=== PATIENT | male | born 1970 | race Caucasian/White ===

== ENCOUNTER → 2019-03-16 08:21 | Outpatient (CLI) | payer MEDICAID, SELFPAY ==
--- NOTE | 2019-03-16 08:25 | CA_ITS ---
APPROVED REPORT EXAM: Comprehensive 2D, Doppler, and color-flow Echocardiogram Landscaper Helper: Prema Powers RT(R) Ht: 6 ft 1 in Wt: 211lbs BSA: 2.20 BP: 114/71 mmHg Indications: COPD, Shortness of Breath, Palpitations, CAD, Hyperlipidemia, Hypertension/HDD 2D Dimensions LVOT 2.12 cm (M/F) 1.5-2.5 M-Mode Dimensions RVDd 2.23 cm (0.9-2.6) LVDd 5.35 cm (3.5-5.7) LVDs 3.84 cm (3.5-5.7) IVSd 0.80 cm (0.6-1.1) PWd 0.94 cm (0.6-1.1) EF (Teich) 54.10% FS 28.20% EDV (Teich) 138.30 mL ESV (Teich) 63.50 mL LV Diastology E/A Ratio 1.36 Mitral Valve MV A Velocity 50.00 (40-130 cm/s) Left Ventricle Left atrium is mildly enlarged, left ventricle is normal size, mild concentric left ventricular hypertrophy, visually estimated ejection fraction 55% with no regional wall motion abnormality, grade 1 diastolic dysfunction seen without tissue Doppler evidence of raise left atrial pressure. Right Ventricle Right atrium and right ventricular normal size and contractility. Aortic Valve Aortic valve is minimally thickened and fibrosed, there is no aortic stenosis aortic insufficiency. Mitral Valve Mitral valve is grossly normal, there is mild mitral regurgitation. Tricuspid Valve Tricuspid valve is grossly normal, there is mild tricuspid regurgitation. Pulmonic Valve Pulmonic valve is poorly visualized. Great Vessels Aortic root is normal size. Pericardium No significant pericardial effusion noted. Conclusion 1. Mildly low left atrium, normal left ventricular size, mild concentric left ventricular hypertrophy, visually estimated ejection fraction 55% with no regional wall motion abnormality, grade 1 diastolic dysfunction seen without tissue Doppler evidence of raise left atrial pressure. 2. Mild mitral and tricuspid regurgitation. 3. No significant pericardial effusion noted. Electronically signed by : Babar Dominguez, 03/16/2019 20:16:19
== END ==
PROVIDERS: PCP Family Medicine; Visit Provider Urology
DX: I25.10 Atherosclerotic heart disease of native coronary artery without angina pectoris (principal); R06.09 Other forms of dyspnea; E78.2 Mixed hyperlipidemia; I11.9 Hypertensive heart disease without heart failure; F17.200 Nicotine dependence, unspecified, uncomplicated
CPT/HCPCS: 93306

== ENCOUNTER → 2019-06-29 12:13 | Outpatient (CLI) | payer MEDICAID, SELFPAY ==
[2019-06-29 12:41] LABS: Basophils # 0.1 K/mm3 (0-0.2); Basophils % 1.4 % (0.1-2.0); Eosinophils # 0.2 K/mm3 (0.0-0.4); Eosinophils % 2.8 % (0.1-12.0); Hematocrit 47.9 % (42.0-52.0); Hemoglobin 16.9 g/dL (14.1-18.0); Lymphocytes # 1.9 K/mm3 (0.7-4.5); Lymphocytes % 30.5 % (10-50); Mean Corpuscular HGB Conc 35.4 g/dL (31.8-35.4); Mean Corpuscular Hemoglobin 30.1 pg (27.0-31.2); Mean Corpuscular Volume 85.1 fl (80-94); Mean Platelet Volume 8.1 fl (7.4-10.4); Monocytes # 0.5 K/mm3 (0.1-1.0); Monocytes % 7.1 % (1.7-9.3); Neutrophils # 3.7 K/mm3 (1.8-7.8); Neutrophils % 58.2 % (37.0-80.0); Platelet Count 200 K/mm3 (142-424); Red Blood Count 5.62 M/mm3 (4.60-6.20); Red Cell Distribution Width 13.2 % (11.5-17.5); White Blood Count 6.3 K/mm3 (4.8-10.8)
[2019-06-29 14:14] LABS: Anion Gap 12.5 mEq/L (5-15); Blood Urea Nitrogen 14 mg/dl (9-20); Carbon Dioxide 30 mmol/L (22.0-30.0); Chloride 101 mmol/L (98-107); Estimated Glomerular Filt Rate 90 ml/min (>60); GFR (African American) 109 ML/MIN (>60); Glucose 100 mg/dl (74-100); Potassium 4.5 mmoL/L (3.5-5.1); Sodium 139 mmol/L (136-145)
== END ==
PROVIDERS: PCP Family Medicine; Visit Provider Urology
DX: R42 Dizziness and giddiness (principal); I25.10 Atherosclerotic heart disease of native coronary artery without angina pectoris; I11.9 Hypertensive heart disease without heart failure; E78.5 Hyperlipidemia, unspecified; J44.9 Chronic obstructive pulmonary disease, unspecified; F17.200 Nicotine dependence, unspecified, uncomplicated
CPT/HCPCS: 36415; 80048; 85025; 93270

== ENCOUNTER → 2020-07-27 09:44 | Outpatient (CLI) | payer MEDICAID, SELFPAY ==
[2020-07-27 10:16] LABS: Alanine Aminotransferase 39 U/L (12-78); Albumin Level 4.6 g/dl (3.5-5.0); Alkaline Phosphatase 90 U/L (38-126); Aspartate Amino Transferase 36 U/L (17-59); Bilirubin,Direct 0.1 mg/dl (0.0-0.4); Bilirubin,Indirect 0.3 mg/dL (0.0-0.9); Bilirubin,Total 0.4 mg/dl (0.2-1.3); Bilirubin,Unconjugated 0.4 mg/dL (0.0-1.1); Chol/HDL Ratio 3.7 (1-3.5); Cholesterol 134 mg/dl (140-200); HDL Cholesterol 36 mg/dl (40-60); Total Protein,Serum 7.4 g/dl (6.3-8.2); Triglycerides 295 mg/dl (30-150); VLDL Cholesterol 59 mg/dL (0-40)
[2020-07-27 10:28] LABS: Direct LDL Cholesterol < 30.00 mg/dL (100-129)
== END ==
PROVIDERS: Visit Provider Nurse Practitioner Family
DX: I25.10 Atherosclerotic heart disease of native coronary artery without angina pectoris (principal); E78.2 Mixed hyperlipidemia
CPT/HCPCS: 36415; 80061; 80076

== ENCOUNTER → 2021-11-06 10:00 | Outpatient (CLI) | payer MEDICAID, SELFPAY ==
[2021-11-06 10:52] LABS: Basophils # 0.1 K/mm3 (0-0.2); Basophils % 1.9 % (0.1-2.0); Eosinophils # 0.1 K/mm3 (0.0-0.4); Eosinophils % 2.3 % (0.1-12.0); Hematocrit 43.8 % (42.0-52.0); Hemoglobin 14.6 g/dL (14.1-18.0); Lymphocytes # 1.6 K/mm3 (0.7-4.5); Lymphocytes % 27.8 % (10-50); Mean Corpuscular HGB Conc 33.3 g/dL (31.8-35.4); Mean Corpuscular Hemoglobin 27.5 pg (27.0-31.2); Mean Corpuscular Volume 82.6 fl (80-94); Mean Platelet Volume 8.5 fl (7.4-10.4); Monocytes # 0.4 K/mm3 (0.1-1.0); Neutrophils # 3.4 K/mm3 (1.8-7.8); Platelet Count 202 K/mm3 (142-424); Red Blood Count 5.31 M/mm3 (4.60-6.20); Red Cell Distribution Width 14.4 % (11.5-17.5); White Blood Count 5.6 K/mm3 (4.8-10.8)
[2021-11-06 11:12] LABS: Alanine Aminotransferase 26 U/L (12-78); Albumin Level 4.1 g/dl (3.5-5.0); Alkaline Phosphatase 100 U/L (38-126); Anion Gap 8.6 mEq/L (5-15); Aspartate Amino Transferase 27 U/L (17-59); Bilirubin,Direct 0.2 mg/dl (0.0-0.4); Bilirubin,Indirect 0.1 mg/dL (0.0-0.9); Bilirubin,Total 0.3 mg/dl (0.2-1.3); Bilirubin,Unconjugated 0.1 mg/dL (0.0-1.1); Blood Urea Nitrogen 8 mg/dl (9-20); Calcium 9.3 mg/dl (8.4-10.2); Carbon Dioxide 31 mmol/L (22.0-30.0); Chloride 103 mmol/L (98-107); Chol/HDL Ratio 3.4 (1-3.5); Cholesterol 117 mg/dl (140-200); Estimated Glomerular Filt Rate 102 ml/min (>60); GFR (African American) 123 ML/MIN (>60); Glucose 107 mg/dl (74-100); HDL Cholesterol 34 mg/dl (40-60); Potassium 3.6 mmoL/L (3.5-5.1); Sodium 139 mmol/L (136-145); Total Protein,Serum 6.6 g/dl (6.3-8.2); Triglycerides 224 mg/dl (30-150); VLDL Cholesterol 45 mg/dL (0-40)
[2021-11-06 11:25] LABS: Direct LDL Cholesterol < 30.00 mg/dL (100-129)
[2021-11-06 11:42] LABS: Thyroid Stimulating Hormone 1.02 uIU/mL (0.465-4.68)
== END ==
PROVIDERS: PCP Family Medicine; Visit Provider Nurse Practitioner
DX: R06.00 Dyspnea, unspecified (principal); I25.10 Atherosclerotic heart disease of native coronary artery without angina pectoris; I11.9 Hypertensive heart disease without heart failure; E11.9 Type 2 diabetes mellitus without complications; E78.2 Mixed hyperlipidemia; J43.9 Emphysema, unspecified; I63.9 Cerebral infarction, unspecified; F17.200 Nicotine dependence, unspecified, uncomplicated
CPT/HCPCS: 36415; 80048; 80061; 80076; 84439; 84443; 85025

== ENCOUNTER 2024-05-23 10:09 | Emergency (ER) | payer MEDICAID, SELFPAY ==
[2024-05-23] VITALS (12 sets, daily range): BP systolic 96–136; BP diastolic 68–84; PULSE 60–68; RESP 10–21; TEMP 36.7; O2SAT 96–98; BMI 25.7
--- NOTE | 2024-05-23 10:22 | ECG_ITS ---
APPROVED REPORT Exam: Resting ECG HR:66 bpm ECG Measurements Heart Rate 66 AXES IL 181 P 59 QRSd 81 QRS 55 QT 366 T 62 QTc 379 Conclusion SINUS RHYTHM NORMAL ECG UNCONFIRMED REPORT Electronically signed by : Brent Isbell, 05/23/2024 15:00:02
--- NOTE | 2024-05-23 10:35 | PC.NURSE ---
I rounded on the pt and had him change to a gown. MOP RN had rounded and the informed her that the pt has hemorrhoids that are bleeding and would like them looked at. no needs voiced. call padilla in reach.
--- NOTE | 2024-05-23 10:57 | ED_ITS ---
Discharge Plan Disposition Patient Disposition: Home, Self-Care Prescriptions Prescriptions: No Action aspirin 81 mg tablet,delayed release (DR/EC) See Rx Instructions .ROUTE .COMPLEX Qty: 90 3RF Dose Instruction: TAKE ONE (1) TABLET BY MOUTH ONCE DAILY Rx Instructions: TAKE ONE (1) TABLET BY MOUTH ONCE DAILY atorvastatin 10 mg tablet 10 mg PO DAILY Qty: 90 3RF carvedilol 6.25 mg tablet 6.25 mg PO BID Qty: 180 3RF pantoprazole 40 mg tablet,delayed release (DR/EC) 40 mg PO DAILY Qty: 90 3RF albuterol sulfate 0.63 mg/3 mL solution for nebulization 0.21 mg INHALATION DIRECTED albuterol sulfate [Proventil HFA] 90 mcg/actuation HFA aerosol inhaler 1 puff INHALATION Q6H Qty: 8.5 6RF Rx Instructions: administer with spacer Referrals Follow up/Referrals: Lionel Solano II, MD [Staff Physician] - See instructions Meena Resendez APRN [Primary Care Provider] - See instructions Activity Restrictions/Add. Instructions Additional Instructions/Restrictions: As discussed no definitive cause of your lightheaded symptoms found in the emergency department but no cardiopulmonary or neurovascular emergency identified either. Please drink plenty of fluids and rest follow-up with your online affiliate marketing manager as well as your matcher operator for an outpatient colonoscopy. Return with any significant worsening of her symptoms or focal neurologic abnormality such as weakness changes in coordination vision or other concerns. Clinical Impressions Clinical Impression: Light headed, External hemorrhoid, Lower gastrointestinal bleed Print Language Print Language: Icelandic Discharge ED Provider: Cher Isbell General Adult HPI General Chief complaint: Dizziness Stated complaint: dizzy, bleeding hemorrhoids Time Seen by Provider: 05/23/24 10:32 Mode of Arrival: Ambulatory Source of Information: Patient Limitations: No Limitations Description of Symptoms (Recalled from ER Triage Doc. by RN): pt c/o dizziness x3d. pt reports the dizziness does not worsen or improve with position. pt states he had vertigo in the past and this is similar. pt denies chest pain, SOA, or any other pain. History of Present Illness HPI narrative: Patient is a 53-year-old male presenting today with lightheadedness. States has been ongoing prior to today and describes it as a lightheaded sensation not a vertiginous or spinning sensation. No significant change in symptoms associated with position. Patient denies any numbness weakness tingling changes in vision or coordination. Does state he has been bleeding a lot from what he believes is hemorrhoids. Has never had a colonoscopy before. Denies any chest pain shortness of breath denies any headaches denies any pain elsewhere. Denies any fevers or chills etc. Related Data Home Medications ?Medication ?Instructions ?Recorded ?Confirmed albuterol sulfate 0.63 mg/3 mL 0.21 mg inhalation DIRECTED 07/01/17 05/23/24 solution for nebulization Previous Rx's ?Medication ?Instructions ?Recorded albuterol sulfate 90 mcg/actuation 1 puff inhalation Q6H #8.5 grams 07/03/17 aerosol inhaler (Proventil HFA) aspirin 81 mg tablet,delayed See Rx Instructions .Route 12/05/23 release .COMPLEX #90 tabs atorvastatin 10 mg tablet 10 mg PO DAILY #90 tabs 12/05/23 carvedilol 6.25 mg tablet 6.25 mg PO BID #180 tabs 12/05/23 pantoprazole 40 mg tablet,delayed 40 mg PO DAILY #90 tabs 12/05/23 release Allergies Allergy/AdvReac Type Severity Reaction Status Date / Time No Known Allergies Allergy Verified 05/23/24 10:34 [facility] Disclaimer: The information contained in this section may have been updated after the patient was seen, as this information can be updated by other users. Social History Smoking Status: Current every day smoker alcohol intake: never substance use type: denies use current occupational status: employed and unemployed Travel in the last 8 weeks: Inside the [place] Have you lived/traveled outside US in past 30 days?: No Contact w/someone who lives/traveled outside US past 30 days?: No Exposure to someone with infectious disease in past 14 days?: No Do you have a fever (greater than 100.4 F or 38 C)?: No Have you tested positive for COVID-19: No Exposed to someone with COVID-19 in past 14 days?: No Do you have a sore throat?: No Do you have a cough?: No Do you have any weakness?: No Do you have any diarrhea?: No Are you experiencing any unusual bleeding?: No Do you have any muscle aches/pain?: No Do you have any abdominal pain?: No Are you experiencing loss of taste or smell?: No Other Medical History Have you received the Flu Vaccine for this season: Yes Have you received the Pneumonia Vaccine: No ROS Obtained: Yes All systems reviewed & no additional complaints except as documented Physical Exam General General appearance: alert and in no apparent distress Respiratory Respiratory exam: Present normal lung sounds bilaterally; Absent respiratory distress Cardiovascular Cardiovascular exam: Present regular rate and normal rhythm Abdominal Exam Abdominal exam: Present soft; Absent distention or tenderness Rectal Exam Rectal exam: Present other (External hemorrhoids noted and there is evidence of mucosal recent bleeding no melena noted) Neurological Exam Neurological exam: Present alert, oriented X3, CN II-XII intact and normal gait; Absent motor sensory deficit Medical Decision Making Medical Records Screening: Per USPSTF and CDC recommendations, given the prevalence of disease in our region, it is our hospital?s policy to screen for HIV and viral Hepatitis for all patients aged 18 and over and those with ongoing risk factors. [place] Inquiry Pt receiving controlled substance: No Vital Signs: 05/23/24 10:15 05/23/24 10:29 05/23/24 10:31 Temperature 98.1 F Temperature Source Oral Pulse Rate 68 66 Pulse Rate [Left] 66 Respiratory Rate 16 13 Blood Pressure 123/84 105/76 L Blood Pressure [Right Arm] 123/84 Blood Pressure Mean [Right Arm] 97 Blood Pressure Source [Right Arm] Automatic Cuff Blood Pressure Position [Right Arm] Sitting 02 Sat by Pulse Oximetry 96 96 96 Oxygen Delivery Method Room Air Room Air Room Air 05/23/24 10:45 05/23/24 11:00 05/23/24 11:05 Temperature Temperature Source Pulse Rate Pulse Rate [Left] Respiratory Rate 11 L 15 10 L Blood Pressure 96/76 L Blood Pressure [Right Arm] Blood Pressure Mean [Right Arm] Blood Pressure Source [Right Arm] Blood Pressure Position [Right Arm] 02 Sat by Pulse Oximetry Oxygen Delivery Method 05/23/24 11:15 05/23/24 11:30 05/23/24 11:31 Temperature Temperature Source Pulse Rate Pulse Rate [Left] Respiratory Rate 16 15 21 Blood Pressure 136/75 Blood Pressure [Right Arm] Blood Pressure Mean [Right Arm] Blood Pressure Source [Right Arm] Blood Pressure Position [Right Arm] 02 Sat by Pulse Oximetry Oxygen Delivery Method 05/23/24 11:45 05/23/24 12:00 Temperature Temperature Source Pulse Rate 60 Pulse Rate [Left] Respiratory Rate 11 L 16 Blood Pressure 118/74 Blood Pressure [Right Arm] Blood Pressure Mean [Right Arm] Blood Pressure Source [Right Arm] Blood Pressure Position [Right Arm] 02 Sat by Pulse Oximetry 98 Oxygen Delivery Method Room Air Lab Data Lab results reviewed: Yes I reviewed the patient's lab results. Lab Results 05/23/24 10:23: HCV Ab KIRILL w/Rflx PCR Qn Negative, HIV Ag/Ab Combo Qual Negative 05/23/24 10:24: WBC 5.6, RBC 5.37, Hgb 12.9 L, Hct 39.9 L, MCV 74.3 L, MCH 24.0 L, MCHC 32.3, RDW 14.6, Plt Count 199, MPV 9.9, Neut % (Auto) 65.4, Lymph % (Auto) 24.1, Treasure % (Auto) 7.0, Eos % (Auto) 2.0, Baso % (Auto) 1.3, Neut # (Auto) 3.7, Lymph # (Auto) 1.4, Treasure # (Auto) 0.4, Eos # (Auto) 0.1, Baso # (Auto) 0.1, Sodium 138, Potassium 3.8, Chloride 101, Carbon Dioxide 31 H, Anion Gap 9.8, BUN 12, Creatinine 0.90, Estimated Creat Clear 114, Estimated GFR 88, Est GFR ( Amer) 106, Glucose 101 H, Calcium 9.1, Phosphorus 2.3 L, Magnesium 1.7, Total Bilirubin 0.6, AST 32, ALT 30, Alkaline Phosphatase 70, Troponin I < 0.01, NT-Pro-B Natriuret Pep < 20.0, Total Protein 7.3, Albumin 4.7, Globulin 2.6, Albumin/Globulin Ratio 1.8, TSH 0.83 05/23/24 10:24 05/23/24 10:24 Orders (Tests/Meds): ED MEDICATIONS Discontinued Medications Generic Name Dose Route Start Last Admin Trade Name Freq PRN Reason Stop Dose Admin Sodium Chloride 1,000 mls @ 999 mls/hr 05/23/24 11:00 05/23/24 11:00 Sod Chlor 0.9% 1000ml Bag IV 05/23/24 12:00 999 mls/hr .Q1H1M SAMEER Administration ORDERS Category Date Time Status BNP [NT Pro Brain Natriuretic Pep.] Stat Lab 05/23/24 10:24 Completed CBC w/Auto Diff [Complete Blood Count Auto Diff] Stat Lab 05/23/24 10:24 Completed CMP [Comprehensive Metabolic Panel] Stat Lab 05/23/24 10:24 Completed HIV Combo Stat Lab 05/23/24 10:23 Completed Hepatitis C Ab Qual. W/ RFX Stat Lab 05/23/24 10:23 Completed Magnesium Stat Lab 05/23/24 10:24 Completed Phosphorous Stat Lab 05/23/24 10:24 Completed TSH [Thyroid Stimulating Hormone] Stat Lab 05/23/24 10:24 Completed Trop I [Troponin I] Stat Lab 05/23/24 10:24 Completed Troponin I Q3H Lab 05/23/24 14:00 Ordered Troponin I Q3H Lab 05/23/24 17:00 Ordered Medical Decision Narrative: 53-year-old with above history and physical. Neurologic and abdominal exam are normal. There is evidence of external hemorrhoids but the small amount of mucosal bleeding seems to be not in proportion to the bleeding they describe historically. It is possible that this is the cause for the source of bleeding patient does not look anemic but that certainly is possible. He is never had a colonoscopy regardless of my findings today I will recommend that he follow-up outpatient with gastroenterology to get a colonoscopy. His neurologic exam is normal. Aquasco-Hallpike maneuver was normal no evidence of vertigo. Cardiovascular everything appears normal as well. IV fluids will be administered and will rule out emergent medical condition today. No indication for any CT imaging or brain imaging today. EKG was unremarkable labs unremarkable as well on serial assessments patient has a normal neurovascular and cardiovascular exam as well. No definitive emergent medical condition identified today. There is some uncertainty with what is going on with this patient with his lightheadedness which is nonspecific. I advised that he follow-up with his online affiliate marketing manager as well as his matcher operator he certainly needs a colonoscopy as discussed above. Patient discharged in stable condition. Critical Care Critical Care Time Critical Care Time: No
[2024-05-23] MEDS: 0.9 % SODIUM CHLORIDE 1000ML 1,000 ML 999 ML IV (11:00)
[2024-05-23 11:01] LABS: Basophils # 0.1 K/mm3 (0-0.2); Basophils % 1.3 % (0.1-2.0); Eosinophils # 0.1 K/mm3 (0.0-0.4); Hematocrit 39.9 % (42.0-52.0); Hemoglobin 12.9 g/dL (14.1-18.0); Lymphocytes # 1.4 K/mm3 (0.7-4.5); Lymphocytes % 24.1 % (10-50); Mean Corpuscular HGB Conc 32.3 g/dL (31.8-35.4); Mean Corpuscular Volume 74.3 fl (80-94); Mean Platelet Volume 9.9 fl (7.4-10.4); Monocytes # 0.4 K/mm3 (0.1-1.0); Neutrophils # 3.7 K/mm3 (1.8-7.8); Neutrophils % 65.4 % (37.0-80.0); Platelet Count 199 K/mm3 (142-424); Red Blood Count 5.37 M/mm3 (4.60-6.20); Red Cell Distribution Width 14.6 % (11.5-17.5); White Blood Count 5.6 K/mm3 (4.8-10.8)
--- NOTE | 2024-05-23 11:05 | PC.NURSE ---
I rounded on the pt and hooked him back up to his BP cuff. pt has no new complaints. I took him a warm blanket. call padilla in reach.
[2024-05-23 11:12] LABS: Albumin Level 4.7 g/dl (3.5-5.0); Chloride 101 mmol/L (98-107)
[2024-05-23 11:13] LABS: Potassium 3.8 mmoL/L (3.5-5.1); Sodium 138 mmol/L (136-145)
[2024-05-23 11:15] LABS: Alanine Aminotransferase 30 U/L (12-78); Anion Gap 9.8 mEq/L (5-15); Aspartate Amino Transferase 32 U/L (17-59); Blood Urea Nitrogen 12 mg/dl (9-20); Carbon Dioxide 31 mmol/L (22.0-30.0); Creatinine Clearance Estimated 114 mL/min (50-200); Estimated Glomerular Filt Rate 88 ml/min (>60); GFR (African American) 106 ML/MIN (>60)
[2024-05-23 11:16] LABS: Albumin/Globulin Ratio 1.8 (1.1-1.8); Alkaline Phosphatase 70 U/L (38-126); Bilirubin,Total 0.6 mg/dl (0.2-1.3); Calcium 9.1 mg/dl (8.4-10.2); Globulin 2.6 g/dL (1.3-3.2); Glucose 101 mg/dl (74-100); Magnesium 1.7 mg/dl (1.6-2.3); Phosphorous 2.3 mg/dl (2.5-4.5); Total Protein,Serum 7.3 g/dl (6.3-8.2)
[2024-05-23 11:25] LABS: NT Pro Brain Natriuretic Pep. < 20.0 pg/mL (0-125)
[2024-05-23 11:28] LABS: Troponin I < 0.01 ng/ml (0.00-0.034)
[2024-05-23 11:39] LABS: HIV Combo NEGATIVE (Negative)
[2024-05-23 11:46] LABS: Hepatitis C Ab Qual. W/ RFX NEGATIVE (Negative)
[2024-05-23 11:47] LABS: Thyroid Stimulating Hormone 0.83 uIU/mL (0.465-4.68)
== END 2024-05-23 12:47 | disposition home or self-care (01) ==
PROVIDERS: Emergency Provider Student in an Organized Health Care Education/Training Program; PCP Nurse Practitioner Family
DX: K92.2 Gastrointestinal hemorrhage, unspecified (principal); K64.4 Residual hemorrhoidal skin tags; R42 Dizziness and giddiness; K64.9 Unspecified hemorrhoids; Z72.0 Tobacco use
CPT/HCPCS: 80053; 83735; 83880; 84100; 84443; 84484; 85025; 86803; 87389; 93005; 96360; 99283; J7030

== ENCOUNTER 2024-06-16 06:11 | Outpatient (CLI) | payer OTHER, SELFPAY ==
--- NOTE | 2024-06-16 06:15 | NM_ITS ---
APPROVED REPORT Exam: Nuclear Stress Test Indication: CAD, HTN, High cholesterol, Tobacco use, Family history, SOB Patient Location: Outpatient Stress Tech: Bernice Rudolph PA Tech:Cassandra Espitia, ARRT, RT (R)(N) Ht: 6 ft 0 in Wt: 195 lbs HR: 62 bpm BP: 127/81 mmHg BSA: 2.11 m2 TID: 1.06 History: CAD, HTN, High cholesterol, Tobacco use, Family history, SOB Procedure: Patient exercised on Vickey protocol 6:00 minutes and sec, resting heart rate 62 bpm, resting blood pressure 127/81 mmHg, with exercise maximum heart rate achived was 146 bpm which is 87 % of the maximum predicted heart rate and blood pressure was 180/86 mmHg. Test was stopped due to SOB. Patient denied any complaint of chest pain. Patient has Average exercise capacity, achieved 7.1 METs of workload on treadmill, the blood pressure response to exercise was normal. Cardiac Stress and Resting SPECT Images: Cardiac Stress and Resting SPECT images were obtained using technetium 99m Myoview 29.4 mCi stress and 10.46 mCi at rest. The patient could not lie on his abdomen. Therefore, prone stress imaging could not be performed. This may affect the diagnostic interpretation of the study findings. Resting and stress imaging in supine positions demonstrate a medium sized, mild, partially reversible perfusion defect in the basal inferior LV wall. Gated imaging demonstrates mild reduction in LV systolic function. LVEF is calculated at 48%. Conclusion: Medium sized, mild, partially reversible perfusion defect in the basal inferior LV wall. Findings are suggestive of partial reversible ischemia. Gated imaging demonstrates mild reduction in LV systolic function. LVEF is calculated at 48%. Correlation of LVEF with new or recent TTE is suggested. Electronically signed by : Nyla Larkin MD 06/16/2024 10:45:07
[2024-06-16] MEDS: SODIUM CHLORIDE 0.9% 10ML SYR (RAD ONLY) 10 ML IV ×2 (08:30)
[2024-06-16] MEDS: ISOTOPE MYOVIEW (PER STUDY) 1 DOSE IV (08:30)
== END 2024-06-16 23:59 | disposition home or self-care (01) ==
LOC: RAD 06:11
PROVIDERS: PCP Nurse Practitioner Family; Visit Provider Physician Assistant
DX: I25.10 Atherosclerotic heart disease of native coronary artery without angina pectoris (principal); R42 Dizziness and giddiness; E78.2 Mixed hyperlipidemia
CPT/HCPCS: 78452; 93017; 93018; A9502

== ENCOUNTER 2024-07-03 07:58 | Day surgery (SDC) | payer OTHER, SELFPAY ==
[2024-07-03] VITALS (11 sets, daily range): BP systolic 103–131; BP diastolic 59–82; PULSE 62–74; RESP 18–20; O2SAT 95–99; BMI 27.6
--- NOTE | 2024-07-03 07:17 | IR_ITS ---
APPROVED REPORT Patient Location: Outpatient Design Engineer Products: Mika Brito, RT (R) PROCEDURES Left heart catheterization Left ventriculogram Selective coronary angiogram INDICATION Abnormal Myoview, Angina pectoris Informed consent was obtained prior to the procedure. COMPLICATIONS NONE Estimated Blood Loss: LESS THAN 10 ML TECHNIQUE One percent lidocaine used to anesthetize the right anterior aspect of the wrist. The right radial artery was accessed via the Seldinger technique. A 6 Spanish sheath was placed in the right radial artery. 2.5 mg of Verapamil, 800 mcg of nitroglycerin, 1mg Lidocaine and 5000 U Heparin were given through the arterial sheath. The papa catheter was also used to perform left heart catheterization, left ventriculogram and selective coronary angiogram. At the end of the procedure the sheath was removed good hemostasis was achieved using Traclet band, patient was transferred to the postop holding area in stable condition. ANGIOGRAPHIC RESULTS The left main artery Normal The left anterior descending artery Is proximally normal and then has 20 to 30% concentric smooth stenosis The circumflex artery Large and dominant with 10% luminal regularities The right coronary artery Vestigial and normal The CRAWFORD ventriculogram reveals Preserved at 55% The left ventricular end-diastolic pressure Elevated at 20 to 25 mmHg IMPRESSION Mild nonflow limiting mid LAD disease as described above Preserved ejection fraction Elevated LVEDP PLAN 1. Aggressive risk factor modification 2. Treatment of diastolic dysfunction 3. Recommend sleep study Electronically signed by : Enrique Booth MD 07/03/2024 10:30:41
[2024-07-03 08:24] LABS: Basophils # 0.1 K/mm3 (0-0.2); Basophils % 1.3 % (0.1-2.0); Eosinophils # 0.1 K/mm3 (0.0-0.4); Eosinophils % 2.6 % (0.1-12.0); Hematocrit 37.8 % (42.0-52.0); Hemoglobin 12.2 g/dL (14.1-18.0); Lymphocytes # 1.8 K/mm3 (0.7-4.5); Lymphocytes % 31.9 % (10-50); Mean Corpuscular HGB Conc 32.3 g/dL (31.8-35.4); Mean Corpuscular Hemoglobin 24.2 pg (27.0-31.2); Mean Platelet Volume 9.4 fl (7.4-10.4); Monocytes # 0.4 K/mm3 (0.1-1.0); Monocytes % 7.5 % (1.7-9.3); Neutrophils # 3.1 K/mm3 (1.8-7.8); Neutrophils % 56.5 % (37.0-80.0); Platelet Count 183 K/mm3 (142-424); Red Blood Count 5.04 M/mm3 (4.60-6.20); Red Cell Distribution Width 14.1 % (11.5-17.5); White Blood Count 5.5 K/mm3 (4.8-10.8)
[2024-07-03 08:35] LABS: Anion Gap 12.5 mEq/L (5-15); Blood Urea Nitrogen 11 mg/dl (9-20); Calcium 9.3 mg/dl (8.4-10.2); Carbon Dioxide 31 mmol/L (22.0-30.0); Chloride 99 mmol/L (98-107); Creatinine Clearance Estimated 138 mL/min (50-200); Estimated Glomerular Filt Rate 101 ml/min (>60); GFR (African American) 122 ML/MIN (>60); Glucose 104 mg/dl (74-100); Potassium 3.5 mmoL/L (3.5-5.1); Sodium 139 mmol/L (136-145)
[2024-07-03] MEDS: diphenhydrAMINE 50MG/ML VIAL 50 MG IV (10:06)
[2024-07-03] MEDS: HEPARIN 1,000 UNITS/ML 10ML VIAL (CATH LAB) 10000 UNIT IV (10:06)
[2024-07-03] MEDS: VERAPAMIL 2.5MG/ML 2ML VIAL 2.5 MG IV (10:06)
[2024-07-03] MEDS: LIDOCAINE 1% 10ML MDV 20 ML IJ (10:06)
[2024-07-03] MEDS: NITROGLYCERIN 800MCG/8ML SYR (CATH LAB) 800 MCG IA (10:07)
[2024-07-03] MEDS: 0.9 % SODIUM CHLORIDE 500 ML 25 ML IV (10:07)
[2024-07-03] MEDS: HEPARIN 1,000 UNITS/500ML NS (CATH LAB) 3000 UNIT IV (10:07)
[2024-07-03] MEDS: FENTANYL 100MCG/2ML VIAL 50 MCG IV (10:18)
[2024-07-03] MEDS: MIDAZOLAM HCL 1MG/ML 5ML VIAL 1 MG IV (10:18)
[2024-07-03] MEDS: IOPAMIDOL-370 (76%);100ML BOTTLE 50 ML IV (14:55)
== END 2024-07-03 12:47 | disposition home or self-care (01) ==
PROVIDERS: PCP Nurse Practitioner Family; Visit Provider Internal Medicine
DX: I25.118 Atherosclerotic heart disease of native coronary artery with other forms of angina pectoris (principal); R93.1 Abnormal findings on diagnostic imaging of heart and coronary circulation; F17.210 Nicotine dependence, cigarettes, uncomplicated; Z79.899 Other long term (current) drug therapy; Z79.51 Long term (current) use of inhaled steroids; I10 Essential (primary) hypertension; E78.5 Hyperlipidemia, unspecified; J44.9 Chronic obstructive pulmonary disease, unspecified
CPT/HCPCS: 80048; 85025; 93458; 99152; C1725; C1769; J1200; J1644; J3010; Q9967

== ENCOUNTER 2024-08-24 08:57 | Day surgery (SDC) | payer OTHER, SELFPAY ==
[2024-08-21 14:07] VITALS: BMI 29.8
[2024-08-24 10:35] VITALS: BP 116/64; PULSE 65; RESP 16; TEMP 36.2; O2SAT 97
[2024-08-24] MEDS: LACTATED RINGERS 1000ML 1,000 ML 50 ML IV (10:38)
[2024-08-24 10:40] VITALS: O2SAT 97
--- NOTE | 2024-08-24 10:41 | P.HP_ITS ---
History of Present Illness *Admission Date: 08/24/24 *Reason for visit:: Rectal bleeding microcytic anemia, heartburn *History of present illness: Mr. Powers is a 54-year-old gentleman who is here for diagnostic EGD and colonoscopy. The patient has been struggling with some rectal bleeding. He also gets some intermittent lower abdominal pain, nausea, bad heartburn. He does have microcytic anemia. The examination is deemed medically necessary for diagnostic EGD and colonoscopy. The patient has been seen, interviewed and examined prior to the procedure by both myself and the anesthesia provider. [facility] Disclaimer: The information contained in this section may have been updated after the patient was seen, as this information can be updated by other users. Medical History (Updated 08/24/24 @ 10:43 by Lionel Solano II, MD) GERD (gastroesophageal reflux disease) Hypercholesteremia Hypertension Abnormal findings on diagnostic imaging of heart and coronary circulation Surgical History History of surgery on lower extremity History of cardiac cath Family History Mother Diabetes Social History Smoking Status: Current every day smoker alcohol intake: current alcohol intake frequency: holidays/special occasions only substance use type: denies use current occupational status: employed and unemployed Travel in the last 8 weeks?: None Have you lived/traveled outside US in past 30 days?: No Contact w/someone who lives/traveled outside US past 30 days?: No Exposure to someone with infectious disease in past 14 days?: No Do you have a fever (greater than 100.4 F or 38 C)?: No Have you tested positive for COVID-19?: No Exposed to someone with COVID-19 in past 14 days?: No Do you have a sore throat?: No Do you have a cough?: No Do you have any weakness?: No Do you have any diarrhea?: No Are you experiencing any unusual bleeding?: No Do you have any muscle aches/pain?: No Do you have any abdominal pain?: No Are you experiencing loss of taste or smell?: No Other Medical History Have you received the Flu Vaccine for this season: Yes Have you received the Pneumonia Vaccine: No Review of Systems Review of Systems Review of systems (narrative): Negative *Cardiovascular Comments: Negative *Gastrointestinal Comments: Negative *Genitourinary Comments: Negative *Musculoskeletal Comments: Negative *Neurologic Comments: Negative Meds Home Medications and Allergies Home Medications ?Medication ?Instructions ?Recorded ?Confirmed ?Type albuterol sulfate 90 mcg/actuation 1 puff inhalation Q6H #8.5 grams 07/03/17 08/21/24 Rx aerosol inhaler (Proventil HFA) aspirin 81 mg tablet,delayed See Rx Instructions .Route 12/05/23 08/21/24 Rx release .COMPLEX #90 tabs atorvastatin 10 mg tablet 10 mg PO DAILY #90 tabs 12/05/23 08/21/24 Rx carvedilol 6.25 mg tablet 6.25 mg PO BID #180 tabs 12/05/23 08/21/24 Rx pantoprazole 40 mg tablet,delayed 40 mg PO DAILY #90 tabs 12/05/23 08/21/24 Rx release furosemide 20 mg tablet (Lasix) 20 mg PO DAILY #30 tabs 07/03/24 08/21/24 Rx spironolactone 25 mg tablet 25 mg PO DAILY 30 days #30 tabs 07/03/24 08/21/24 Rx (Aldactone) nitroglycerin 0.4 mg sublingual 0.4 mg sublingual Q5M PRN chest 07/07/24 08/21/24 Rx tablet pain #20 tabs sodium,potassium,mag sulfates 17.5 See Rx Instructions PO .COMPLEX 08/10/24 08/21/24 Rx gram-3.13 gram-1.6 gram oral soln #354 mL (Suprep Bowel Prep Kit) New Prescriptions to Start Prescriptions: Allergies Allergy/AdvReac Type Severity Reaction Status Date / Time No Known Allergies Allergy Verified 08/24/24 10:34 Exam Data for Last 24 hours Vital signs and Labs for Last 24 Hours: Temp Pulse Resp BP Pulse Ox O2 Del Method 97.2 F L 65 16 116/64 97 Room Air 08/24/24 10:35 08/24/24 10:35 08/24/24 10:35 08/24/24 10:35 08/24/24 10:35 08/24/24 10:35 I & O for Last 24 hours: Intake & Output 05/08/22/24 08/23/24 08/24/24 23:59 23:59 23:59 23:59 Weight 220 lb *Routine HEENT Exam Head: Present normocephalic Eye: Present EOMI and PERRL ENT: Present mucous membranes moist *Routine Neck Exam Neck: Present supple *Routine Respiratory Exam Respiratory: Present CTA bilaterally *Routine Cardiovascular Exam Cardiovascular: Present RRR *Routine Abdominal Exam Abdominal: Present soft and normoactive bowel sounds; Absent tenderness *Routine Rectal Exam Rectal:: deferred *Routine Genitalia Exam Genitalia:: deferred *Routine Extremities Exam Extremities: Absent cyanosis, clubbing or edema *Routine Skin Exam Skin: Present warm; Absent rash *Routine Neurological Exam Neurological: Present alert and oriented X3 Assessment and Plan *Assessment and plan (1) Heartburn: Status: Acute Category: Medical Code(s): R12 - Heartburn (2) Rectal bleeding: Status: Acute Category: Medical Code(s): K62.5 - Hemorrhage of anus and rectum (3) Lower abdominal pain: Status: Acute Category: Medical Code(s): R10.30 - Lower abdominal pain, unspecified (4) Microcytic anemia: Status: Acute Category: Medical Code(s): D50.9 - Iron deficiency anemia, unspecified Plan A/P: 1. Bad heartburn with bright red rectal bleeding, lower abdominal pain and microcytic anemia is the preprocedural diagnosis. The patient will be anesthetized/sedated using MAC sedation. The patient has been seen and examined. Cardiac and lung assessment prior to the examination is stable. Proceed with planned diagnostic EGD and colonoscopy.
--- NOTE | 2024-08-24 10:43 | P.PNANES_ITS ---
[facility] Disclaimer: The information contained in this section may have been updated after the patient was seen, as this information can be updated by other users. Medical History GERD (gastroesophageal reflux disease) Hypercholesteremia Hypertension Abnormal findings on diagnostic imaging of heart and coronary circulation Surgical History History of surgery on lower extremity History of cardiac cath Family History Mother Diabetes Social History Smoking Status: Current every day smoker alcohol intake: current alcohol intake frequency: holidays/special occasions only substance use type: denies use current occupational status: employed and unemployed Travel in the last 8 weeks?: None Have you lived/traveled outside US in past 30 days?: No Contact w/someone who lives/traveled outside US past 30 days?: No Exposure to someone with infectious disease in past 14 days?: No Do you have a fever (greater than 100.4 F or 38 C)?: No Have you tested positive for COVID-19?: No Exposed to someone with COVID-19 in past 14 days?: No Do you have a sore throat?: No Do you have a cough?: No Do you have any weakness?: No Do you have any diarrhea?: No Are you experiencing any unusual bleeding?: No Do you have any muscle aches/pain?: No Do you have any abdominal pain?: No Are you experiencing loss of taste or smell?: No [facility] Anesthesia Checklist Patient Identification Patient Identification: Arm Band and Verbal (Name & ) Structural Data Admitted From: Home Planned Operative Procedure/s: EGD colonscopy Consent for Planned Operative Procedure(s) Verified: Yes Verified Documents: Surgical Consent and History and Physical NPO Status Verified Time NPO: 00:00 Additional verifications Anesthesia Reactions: No Airway Assessment Mallampati Score:: Class II Dentition: Edentulous Neurological Assessment Level of Consciousness: Awake, Alert and Appropriate Hx Seizures: No Anesthesia Plan Anesthesia Risk discussed: Yes Anesthesia Plan: Verified ASA Class: III Anesthesia Type: MAC
--- NOTE | 2024-08-24 10:48 | HMH.PROCNOTE ---
[facility] Procedure Note Date: 08/24/24 Time: 10:53 Procedure Note:: Upper Endoscopy Procedure Report: Esophagogastroduodenoscopy with cold biopsies Endoscopost: Lionel Solano II, MD Referring Physician: GRACE Tompkins, [address] [place], [place] [id number] Date of Procedure: August 24, 2024 Equipment: Olympus GIF 190 standard upper endoscope Sedation: MAC sedation Indications: Mr. Powers is a 54-year-old gentleman who is here for diagnostic EGD and colonoscopy. The patient does have new microcytic anemia. His hemoglobin hematocrit in November 2021 was 14.6 and 43.8. This is presently 12.2 and 37.8. The patient has had some bright red rectal bleeding. He was seen in the office with Junie EDWARDS and reports some lower abdominal pain intermittently if he overeats. He does have chronic GERD for which he takes pantoprazole. He reports no dysphagia, nausea or vomiting. He reports no bloating, gassiness or belching. He reports no change in bowel habits or weight loss. He reports no family history of esophageal, gastric or colon cancer. This is his first EGD and colonoscopy. Procedure: Prior to the procedure, a history and physical exam was performed, and patient's medications and allergies were reviewed. The risks, benefits and alternatives of the sedation and procedure were discussed with the patient. All questions were answered and informed consent was obtained. The patient was brought to the procedure room. Patient identification and proposed procedure were verified by the physician and the nurse. The patient was placed in a left lateral decubitus position and the scope was passed under direct vision. Throughout the procedure, the patient's blood pressure, pulse, and oxygen saturations were monitored continuously. The upper GI endoscopy was accomplished without difficulty. The patient tolerated the procedure well. Findings: The scope was passed directly into the upper esophagus and advanced to the third portion of the duodenum. The post bulbar duodenum and duodenal bulb were normal with normal mucosa and conniventes. The scope was withdrawn through a normal duodenal bulb and pylorus into the stomach. There was very mild antral gastropathy with bile reflux. The body and fundus of the stomach were normal. Upon retroflexion there was a small 2 cm hiatal hernia. Cold biopsies were taken from the lesser curvature of the stomach. The scope was then withdrawn into the esophagus. There was no evidence of reflux esophagitis or Meadows's. The remainder of the esophageal mucosa was normal. Impression: 1. Nonerosive GERD with small 2 cm hiatal hernia 2. Bile reflux with mild antral gastropathy Plan: I will follow-up the biopsies and proceed with diagnostic colonoscopy.
--- NOTE | 2024-08-24 10:56 | P.PCN_ITS ---
[facility] Procedure Note Date: 08/24/24 Time: 11:08 Procedure Note:: Colonoscopy Procedure Report: Colonoscopy with cold snare polypectomy and hemorrhoid band ligation Endoscopist: Lionel Solano II, MD Referring physician: GRACE Tompkins, [address] [place], [place] [id number] Date of Procedure: August 24, 2024 Equipment: Olympus 190 variable stiffness pediatric colonoscope Sedation: MAC sedation Indication: Mr. Powers is a 54-year-old gentleman who is here for diagnostic EGD and colonoscopy. The patient does have new microcytic anemia. His hemoglobin hematocrit in November 2021 was 14.6 and 43.8. This is presently 12.2 and 37.8. The patient has had some bright red rectal bleeding. He was seen in the office with Junie EDWARDS and reports some lower abdominal pain intermittently if he overeats. He does have chronic GERD for which he takes pantoprazole. He reports no dysphagia, nausea or vomiting. He reports no bloating, gassiness or belching. He reports no change in bowel habits or weight loss. He reports no family history of esophageal, gastric or colon cancer. This is his first EGD and colonoscopy. Procedure: Prior to the procedure, a history and physical exam was performed, and patient's medications and allergies were reviewed. The risks, benefits and alternatives of the sedation and procedure were discussed with the patient. All questions were answered and informed consent was obtained. The patient was brought to the procedure room. Patient identification and proposed procedure were verified by the physician and the nurse. The patient was placed in a left lateral decubitus position and the scope was passed under direct vision. Throughout the procedure, the patient's blood pressure, pulse, and oxygen saturations were monitored continuously. The colonoscopy was accomplished without difficulty. The patient tolerated the procedure well. Findings: On digital rectal examination there was normal rectal tone. There were no external hemorrhoids. The prostate was 2+, smooth, soft, symmetric without nodules. The colonoscope was introduced through the anal canal to the rectum and advanced to the cecum. The ileocecal valve and appendiceal orifice were identified. The scope was advanced a short distance into the ileum which baylee eared grossly normal. The scope was then withdrawn into the colon. There were 3 colon polyps (ascending x 3 (4, 5 and 6 mm)). These were all removed via cold snare polypectomy. The remaining cecum, ascending, transverse, descending, sigmoid and rectum were grossly normal. There were no mucosal abnormalities identified. Upon retroflexion within the rectum there were grade 3 internal hemorrhoids. 3 columns of hemorrhoids were banded using 3 bands with excellent ligation effect. The preparation was excellent throughout with [place] Preparation Score of 9. The cecal time was 12 minutes. Impression: 1. Colonic polyps x 3 2. Grade 3 internal hemorrhoids status post band ligation x 3 Plan: I will follow-up the polyp histology and recommend repeat surveillance colonoscopy again in 5 years if the polyps are adenomatous. I would encourage psyllium Konsyl bulking fiber supplementation on a long-term daily maintenance basis.
[2024-08-24 11:17] VITALS: BP 100/70; PULSE 74; RESP 16; TEMP 36.7; O2SAT 97
[2024-08-24 11:27] VITALS: BP 106/73; PULSE 86; RESP 16; O2SAT 97
[2024-08-24 11:37] VITALS: BP 135/79; PULSE 68; RESP 18; O2SAT 100
[2024-08-24 11:47] VITALS: BP 148/73; PULSE 67; RESP 18; O2SAT 99
--- NOTE | 2024-08-24 12:21 | P.PNANES_ITS ---
[facility] Disclaimer: The information contained in this section may have been updated after the patient was seen, as this information can be updated by other users. Medical History GERD (gastroesophageal reflux disease) Hypercholesteremia Hypertension Abnormal findings on diagnostic imaging of heart and coronary circulation Surgical History History of surgery on lower extremity History of cardiac cath Family History Mother Diabetes Social History Smoking Status: Current every day smoker alcohol intake: current alcohol intake frequency: holidays/special occasions only substance use type: denies use current occupational status: employed and unemployed Travel in the last 8 weeks?: None Have you lived/traveled outside [place] in past 30 days?: No Contact w/someone who lives/traveled outside [place] past 30 days?: No Exposure to someone with infectious disease in past 14 days?: No Do you have a fever (greater than 100.4 F or 38 C)?: No Have you tested positive for COVID-19?: No Exposed to someone with COVID-19 in past 14 days?: No Do you have a sore throat?: No Do you have a cough?: No Do you have any weakness?: No Do you have any diarrhea?: No Are you experiencing any unusual bleeding?: No Do you have any muscle aches/pain?: No Do you have any abdominal pain?: No Are you experiencing loss of taste or smell?: No [facility] Anesthesia Checklist Patient Identification Patient Identification: Arm Band and Verbal (Name & ) Structural Data Admitted From: Home Planned Operative Procedure/s: colonscopy Consent for Planned Operative Procedure(s) Verified: Yes Verified Documents: Surgical Consent and History and Physical NPO Status Verified Time NPO: 00:00 Additional verifications Anesthesia Reactions: No Previous Colonoscopy: Yes Airway Assessment Mallampati Score:: Class II Neurological Assessment Level of Consciousness: Awake, Alert and Appropriate Hx Seizures: No Anesthesia Plan Anesthesia Risk discussed: Yes Anesthesia Plan: Verified ASA Class: III Anesthesia Type: MAC
== END 2024-08-24 12:00 | disposition home or self-care (01) ==
PROVIDERS: PCP Nurse Practitioner Family; Visit Provider Internal Medicine Gastroenterology
PROC: 0DJ08ZZ Inspection of Upper Intestinal Tract, Via Natural or Artificial Opening Endoscopic (ICD-10-PCS; CPT 45378; principal; 2024-08-24 11:00)
DX: R12 Heartburn (principal); K62.5 Hemorrhage of anus and rectum; R10.30 Lower abdominal pain, unspecified; D50.9 Iron deficiency anemia, unspecified; K31.9 Disease of stomach and duodenum, unspecified; K44.9 Diaphragmatic hernia without obstruction or gangrene; K21.9 Gastro-esophageal reflux disease without esophagitis; D12.2 Benign neoplasm of ascending colon; K64.2 Third degree hemorrhoids
CPT/HCPCS: 43239; 45385; 45398; C1889; J7120